=== PATIENT | female | born 1980 | race Caucasian/White ===

== ENCOUNTER 2017-02-09 17:32 | Emergency (ER) | payer OTHER ==
[~2017-02-09] VITALS: Ht 170.2 cm; Wt 102.0 kg
[~2017-02-09 17:32] MED LIST: AMOX-291 PO; CLIN300C93 PO; LANS30CA16 PO; OXYC-229 PO
[2017-02-09] MEDS ORDERED: SODIUM CHLORIDE 0.9% 1,000ML IVBOLUS ONE (18:00)
[2017-02-09] MEDS ORDERED: SODIUM CHLORIDE FLUSH 10ML SYR IVF ONE (18:00)
[2017-02-09 18:27] VITALS: BP 129/61
[2017-02-09] MEDS ORDERED: morphine SULFATE 10 MG/ML, 1ML IVPush ONE (18:30)
[2017-02-09] MEDS ORDERED: MECLIZINE CHEWABLE 25 MG TAB PO ONE (18:30)
[2017-02-09] MEDS ORDERED: ONDANSETRON 2MG/ML, 2ML IVPush ONE (18:30)
[2017-02-09] MEDS ORDERED: GABA300C10 PO (18:32)
[2017-02-09] MEDS ORDERED: MORPHINE SULFATE 4 MG/ML, 1ML ONE ×2 (18:37→19:46)
[2017-02-09] MEDS ORDERED: ONDANSETRON 2MG/ML, 2ML ONE (18:37)
[2017-02-09] MEDS ORDERED: MECLIZINE CHEWABLE 25 MG TAB ONE (18:42)
[2017-02-09 18:47] LABS: HEMOGLOBIN 13.5 g/dL (11.7-16.4)
[2017-02-09 18:48] LABS: ASPARTATE AMINO TRANSFERASE 13 U/L (15-37); BLOOD UREA NITROGEN 10 mg/dL (7-18)
[2017-02-09 18:54] LABS: IS PT STATUS REG ER OR PRE ER? YES
[2017-02-09] MEDS: morphine SULFATE 10 MG/ML, 1ML IVPush ONE ×2 (19:00→20:06)
[2017-02-09] MEDS ORDERED: MAALOX/HYOSCYAMINE/LIDOCAINE 45 ML BOTTLE ONE (19:53)
[2017-02-09] MEDS ORDERED: MAALOX/HYOSCYAMINE/LIDOCAINE 45 ML BOTTLE PO ONE (20:00)
== END 2017-02-09 20:19 | disposition home or self-care (01) ==
LOC: ED 19:00
DX: H83.09 Labyrinthitis, unspecified ear (principal); R10.84 Generalized abdominal pain
CPT/HCPCS: 36415; 71020; 76700; 80053; 83690; 84484; 84703; 85025; 93005; 96361; 96374; 96375; 96376; 99285; J2270; J2405; J7030

== ENCOUNTER 2017-03-14 07:41 | Emergency (ER) | payer OTHER ==
[~2017-03-14] VITALS: Ht 170.2 cm; Wt 105.1 kg
[~2017-03-14 07:41] MED LIST changes: +GABA300C10 PO
[2017-03-14] MEDS ORDERED: MORPHINE SULFATE 4 MG/ML, 1ML IVPush ONE (08:30)
[2017-03-14] MEDS ORDERED: MORPHINE SULFATE 4 MG/ML, 1ML ONE (08:42)
[2017-03-14 08:48] VITALS: BP 114/72
== END 2017-03-14 09:17 | disposition home or self-care (01) ==
LOC: ED 08:00
DX: S30.0XXA Contusion of lower back and pelvis, initial encounter (principal); S70.02XA Contusion of left hip, initial encounter; S70.12XA Contusion of left thigh, initial encounter; W18.30XA Fall on same level, unspecified, initial encounter; Y93.01 Activity, walking, marching and hiking; Y92.009 Unspecified place in unspecified non-institutional (private) residence as the place of occurrence of the external cause; Y99.9 Unspecified external cause status
CPT/HCPCS: 72110; 72190; 96374

== ENCOUNTER → 2017-06-01 | Outpatient (CLI) | payer OTHER ==
[~2017-06-01] MED LIST changes: +GABA800T2 PO
== END ==
LOC: STAR 16:03
PROVIDERS: ATTEND Obstetrics & Gynecology
DX: Z02.9 Encounter for administrative examinations, unspecified (principal)

== ENCOUNTER 2017-06-12 11:01 | Day surgery (SDC) | payer OTHER ==
[~2017-06-12] VITALS: Ht 170.2 cm; Wt 108.5 kg
[2017-06-12] MEDS ORDERED: LACTATED RINGERS 1,000 ML IV SCH (11:45)
[2017-06-12 12:06] VITALS: BP 145/78
[2017-06-12] MEDS ORDERED: OXYC-229 PO (12:06)
[2017-06-12] MEDS ORDERED: BUPIVACAINE/PF-EPI 0.5% 1:200K ONE (12:14)
[2017-06-12] MEDS ORDERED: SILVER NITRATE STICK TP ONE (12:14)
[2017-06-12 12:23] LABS: HCG UR OBC PASS
[2017-06-12] MEDS ORDERED: FENTANYL PF 250 MCG/5ML ONE (12:43)
[2017-06-12] MEDS ORDERED: MIDAZOLAM 1 MG/ML, 2ML ONE ×2 (12:44→14:22)
[2017-06-12] MEDS ORDERED: ONDANSETRON 2MG/ML, 2ML ONE ×2 (12:58→14:22)
[2017-06-12] MEDS ORDERED: ROCURONIUM 10 MG/ML ONE (12:58)
[2017-06-12] MEDS ORDERED: KETOROLAC 30 MG/1 ML ONE (12:58)
[2017-06-12] MEDS ORDERED: EPHEDRINE 50 MG/ML, 1ML ONE (12:58)
[2017-06-12] MEDS ORDERED: CEFAZOLIN 1,000 MG ONE (12:58)
[2017-06-12] MEDS ORDERED: DEXAMETHASONE 4 MG/ML, 1ML ONE (12:58)
[2017-06-12] MEDS ORDERED: NEOSTIGMINE 1 MG/ML, 10ML ONE (12:58)
[2017-06-12] MEDS ORDERED: PROPOFOL 10 MG/ML, 20ML ONE (12:58)
[2017-06-12] MEDS ORDERED: GLYCOPYRROLATE 0.2MG/1ML ONE (12:58)
[2017-06-12] MEDS ORDERED: LABETALOL 5MG/ML, 20ML IV PRN (13:00)
[2017-06-12] MEDS ORDERED: OXYcodone 5 MG/5 ML ORAL.SOL UDC PO PRN (13:00)
[2017-06-12] MEDS ORDERED: MEPERIDINE/PF 25MG/0.5ML IVPush PRN (13:00)
[2017-06-12] MEDS ORDERED: ALBUTEROL SULFATE 2.5 MG/3 ML NPPB PRN (13:00)
[2017-06-12] MEDS ORDERED: ONDANSETRON 2MG/ML, 2ML IVPush PRN (13:00)
[2017-06-12] MEDS ORDERED: hydrALAzine 20 MG/ML, 1ML IV PRN (13:00)
[2017-06-12] MEDS ORDERED: ACETAMINOPHEN 325 MG TABLET PO PRN (13:00)
[2017-06-12] MEDS ORDERED: EPHEDRINE 50 MG/ML, 1ML IVPush PRN (13:00)
[2017-06-12] MEDS ORDERED: METOPROLOL 1 MG/ML, 5ML IV PRN (13:00)
[2017-06-12] MEDS ORDERED: ACETAMINOPHEN 650 MG/20.3 ML UDC ONE (14:17)
[2017-06-12] MEDS: FENTANYL PF 100 MCG/2ML IV PRN ×4 (14:17→14:52)
[2017-06-12] MEDS ORDERED: FENTANYL PF 100 MCG/2ML ONE ×2 (14:18→14:45)
[2017-06-12] MEDS ORDERED: OXYcodone 5 MG/5 ML ORAL.SOL UDC ONE (14:18)
[2017-06-12] MEDS ORDERED: ACETAMINOPHEN 325 MG/10.15 ML UDC ONE (14:18)
[2017-06-12] MEDS ORDERED: HYDROmorphone 1 MG/ML, 1ML ONE (14:27)
[2017-06-12] MEDS: HYDROmorphone 1 MG/ML, 1ML IV PRN ×2 (14:30→14:35)
== END 2017-06-12 16:35 ==
LOC: OUT 11:01
PROVIDERS: ATTEND Obstetrics & Gynecology
DX: Z30.2 Encounter for sterilization (principal); N92.0 Excessive and frequent menstruation with regular cycle; Z98.890 Other specified postprocedural states; Z90.3 Acquired absence of stomach [part of]
CPT/HCPCS: 58301; 58563; 58661; 81025; 88300; 88302; J0690; J1100; J1170; J1885; J2405; J2704; J2710; J3010; J7120; J2250; J3490

== ENCOUNTER 2017-07-27 14:34 | Emergency (ER) | payer OTHER ==
[~2017-07-27] VITALS: Ht 170.2 cm; Wt 108.2 kg
[~2017-07-27 14:34] MED LIST changes: +CLIN300C8 PO; -CLIN300C93 PO; -LANS30CA16 PO; +LANS30CA60 PO; -OXYC-229 PO; +OXYC-307 PO
[2017-07-27] MEDS ORDERED: GABA800T2 PO (15:10)
[2017-07-27 15:15] LABS: ASPARTATE AMINO TRANSFERASE 9 U/L (15-37); BLOOD UREA NITROGEN 19 mg/dL (7-18); HEMATOCRIT 41.3 % (34.6-47.8); HEMOGLOBIN 13.9 g/dL (11.7-16.4); WHITE BLOOD COUNT 9.3 x10^3/uL (3.4-10)
[2017-07-27 15:33] LABS: PATH.CAST-FLAG NOT PRESENT; SPERM-FLAG NOT PRESENT; SRC-FLAG NOT PRESENT; XTAL-FLAG NOT PRESENT; YLC-FLAG NOT PRESENT
[2017-07-27] MEDS ORDERED: ONDANSETRON 2MG/ML, 2ML IVPush ONE (16:00)
[2017-07-27] MEDS ORDERED: SODIUM CHLORIDE 0.9% 1,000ML IVBOLUS ONE (16:00)
[2017-07-27] MEDS ORDERED: ONDANSETRON 2MG/ML, 2ML ONE (16:04)
[2017-07-27] MEDS ORDERED: MORPHINE SULFATE 4 MG/ML, 1ML ONE ×2 (16:05→17:13)
[2017-07-27] MEDS: MORPHINE SULFATE 4 MG/ML, 1ML IVPush PRN ×2 (16:17→17:14)
[2017-07-27] MEDS ORDERED: OMNIPAQUE 350 MG/ML, 100ML BOTTLE ONE (16:53)
[2017-07-27] MEDS ORDERED: HYDROmorphone 1 MG/ML, 1ML ONE (18:20)
[2017-07-27] MEDS ORDERED: HYDROmorphone 1 MG/ML, 1ML IV ONE (18:30)
[2017-07-27 19:34] VITALS: BP 117/79
== END 2017-07-27 19:36 | disposition home or self-care (01) ==
LOC: ED 19:30
DX: N89.8 Other specified noninflammatory disorders of vagina (principal)
CPT/HCPCS: 36415; 74177; 76830; 80053; 81001; 85025; 87210; 87491; 87591; 87808; 96361; 96374; 96375; 96376; 99285; J1170; J2405; J7030; Q9967

== ENCOUNTER 2017-11-20 13:37 | Emergency (ER) | payer OTHER ==
[~2017-11-20] VITALS: Ht 170.2 cm; Wt 107.8 kg
[2017-11-20] MEDS ORDERED: DIPH,PERTUSS(ACELL),TET VAC/PF 0.5 ML IM-VACC ONE ×2 (15:00→15:24)
[2017-11-20] MEDS ORDERED: LIDOCAINE 1%, 20ML INFIL ONE (15:00)
[2017-11-20] MEDS ORDERED: LIDOCAINE 1%, 10ML ONE (15:24)
[2017-11-20 16:28] VITALS: BP 121/78
[2017-11-20] MEDS ORDERED: OXYcodone/APAP 10/325MG TABLET PO ONE (16:30)
[2017-11-20] MEDS ORDERED: OXYcodone/APAP 10/325MG TABLET ONE (16:31)
== END 2017-11-20 16:30 | disposition home or self-care (01) ==
LOC: ED 15:00
DX: S01.511A Laceration without foreign body of lip, initial encounter (principal); S39.012A Strain of muscle, fascia and tendon of lower back, initial encounter; S63.501A Unspecified sprain of right wrist, initial encounter; W01.0XXA Fall on same level from slipping, tripping and stumbling without subsequent striking against object, initial encounter; Y92.89 Other specified places as the place of occurrence of the external cause; Y93.89 Activity, other specified; Y99.8 Other external cause status
CPT/HCPCS: 12011; 29125; 72110; 73110; 90471; 90715; 99284; J3490